=== PATIENT | female | born 2000 ===

== ENCOUNTER → 2023-12-22 | Outpatient (CLI) | payer OTHER ==
[2023-12-22 17:06] LABS: Source, Urine Clean Catch
[2023-12-22 19:32] LABS: Appearance, Urine Hazy (Clear); Bilirubin, Urine Neg (Neg); Blood, Urine 2+ (Neg); Color, Urine Yellow (P-Yellow); Glucose Qualitative, Urine Neg (Neg); Ketones, Urine Neg (Neg); Leukocyte Esterase, Urine 1+ (Neg); Nitrite, Urine Neg (Neg); Protein, Urine Neg (Neg); Urobilinogen, Urine NORM (Normal)
[2023-12-22 19:50] LABS: U Amphetamine Screen Not Detected; U Barbituate Screen Not Detected; U Benzodiazapine Screen Not Detected; U Buprenorphine Screen Not Detected; U Cannabinoids Screen Not Detected; U Cocaine Screen Not Detected; U Methadone Screen Not Detected; U Methamphetamine Screen Not Detected; U Opiates Screen Not Detected; U Oxycodone Screen Not Detected; U Phencyclidine Screen Not Detected
[2023-12-22 19:59] LABS: Amorphous Light (0-Heavy); Calcium Oxalate Crystals Few /hpf; Mucus Light (0-Heavy); Red Blood Cells, Urine 0-2 /hpf (0-2); Squamous Epithelial Cells Rare /hpf (Few)
[2023-12-22 20:00] LABS: Bacteria Mod /hpf
== END ==
LOC: LAB 17:00 → LAB SHORT 17:00
PROVIDERS: Advanced Practice Midwife
DX: Z34.01 Encounter for supervision of normal first pregnancy, first trimester (principal)
CPT/HCPCS: 81001; 87086

== ENCOUNTER → 2024-01-05 | Outpatient (CLI) | payer OTHER ==
[2024-01-08 19:43] LABS: C. TRACHOMATIS BY TMA,THINPREP Negative (Negative); N. GONORRHOEAE BY TMA,THINPREP Negative (Negative); SPECIMEN SOURCE Not Provided
== END | disposition home or self-care (01) ==
LOC: LAB SHORT 16:35 → LAB 16:35
PROVIDERS: Obstetrics & Gynecology
DX: Z01.419 Encounter for gynecological examination (general) (routine) without abnormal findings (principal); Z11.3 Encounter for screening for infections with a predominantly sexual mode of transmission
CPT/HCPCS: 87491; 87591; G0123

== ENCOUNTER → 2024-05-20 | Outpatient (CLI) | payer OTHER | LOC: LAB SHORT 16:28 → LAB 16:28 | DX: O09.893 Supervision of other high risk pregnancies, third trimester (principal) | CPT/HCPCS: 87081; 87150 ==

== ENCOUNTER 2024-06-04 21:40 | Inpatient (IN) | payer OTHER ==
[~2024-06-04] VITALS: Ht 149.9 cm; Wt 61.8 kg
[2024-06-04 21:51] VITALS: BP 128/77
[2024-06-04] MEDS ORDERED: FentaNYL Citrate 50 MCG/ML 2 ML Injection IV PRN (22:20)
[2024-06-04] MEDS ORDERED: ePHEDrine Sulfate 50 MG/ML 1ML Injection XX PRN (22:20)
[2024-06-04] MEDS ORDERED: Methylergonovine Maleate 0.2MG / ML 1ML Amp IM PRN (22:20)
[2024-06-04] MEDS ORDERED: Lactated Ringer's 1,000 ML IV PRN (22:20)
[2024-06-04] MEDS ORDERED: Oxytocin 10 Unit / ML Vial IM PRN (22:20)
[2024-06-04] MEDS ORDERED: Acetaminophen 500 MG Tab PO PRN (22:20)
[2024-06-04] MEDS ORDERED: OXYTOCIN/RINGER'S LACTATE 500 ML IV PRN (22:20)
[2024-06-04] MEDS ORDERED: Ondansetron HCl 2 MG / ML 2ML Vial IV PRN (22:20)
[2024-06-04] MEDS ORDERED: Misoprostol 200 MCG Tab PR PRN (22:20)
[2024-06-04] MEDS ORDERED: FentaNYL 2mcg/ml-Bup 0.1% Epd 250 ML EPI PRN (22:20)
[2024-06-04] MEDS ORDERED: Misoprostol 200 MCG Tab BC PRN (22:20)
[2024-06-04] MEDS ORDERED: Lactated Ringer's 1,000 ML IV SCH ×2 (22:20)
[2024-06-04] MEDS ORDERED: Carboprost Tromethamine 250 MCG/ML 1ML Amp IM PRN (22:20)
[2024-06-04] MEDS ORDERED: Calcium Carbonate 500 MG Tab Chew PO PRN (22:25)
[2024-06-04] MEDS ORDERED: Tranexamic Acid 100 ML IV SCH (22:35)
[2024-06-04] MEDS ORDERED: PRENATAL TABLE1 EAC2 PO (22:37)
[2024-06-04 22:40] VITALS: BP 111/63
[2024-06-05] VITALS (13 sets, daily range): BP systolic 101–141; BP diastolic 53–81
[2024-06-05 00:26] LABS: BASOPHILS ABSOLUTE AUTO 0.03 K/mm3 (0.00-0.23); BASOPHILS PERCENT AUTO 0 % (0-2); EOSINOPHILS ABSOLUTE AUTO 0.03 K/mm3 (0.00-0.68); EOSINOPHILS PERCENT AUTO 0 % (0-6); Hematocrit 34.8 % (33.0-51.0); Hemoglobin 11.5 g/dL (11.5-16.0); IMMATURE GRAN ABSOLUTE AUTO 0.24 K/mm3 (0.00-0.10); IMMATURE GRAN PERCENT AUTO 2 % (0-1); LYMPHOCYTES ABSOLUTE AUTO 1.79 K/mm3 (0.84-5.20); LYMPHOCYTES PERCENT AUTO 14 % (21-46); MONOCYTES ABSOLUTE AUTO 1.23 K/mm3 (0.16-1.47); MONOCYTES PERCENT AUTO 10 % (4-13); Mean Corpuscular HGB 27.4 pg (26.0-34.0); Mean Corpuscular Volume 83 fL (80-100); NEUTROPHILS ABSOLUTE AUTO 9.35 K/mm3 (1.96-9.15); NEUTROPHILS PERCENT AUTO 74 % (41-73); Platelet Count 190 K/mm3 (150-400); RDW Coefficient Variation 13.5 % (11.7-14.2); RDW Standard Deviation 40.7 fL (35.1-46.3); Red Blood Cell Count 4.19 M/mm3 (3.80-5.20); White Blood Cell Count 12.67 K/mm3 (4.00-11.30)
[2024-06-05] MEDS ORDERED: Oxytocin 10 Unit / ML Vial IM ONE (04:45)
[2024-06-05] MEDS ORDERED: Lanolin Cream TOP PRN (04:45)
[2024-06-05] MEDS ORDERED: Misoprostol 200 MCG Tab PR PRN (04:45)
[2024-06-05] MEDS ORDERED: Benzocaine Topical Anesthetic Spray 60GM TOP PRN (04:45)
[2024-06-05] MEDS ORDERED: Witch Hazel/Glycerin PADS TOP PRN (04:50)
[2024-06-05] MEDS ORDERED: Carboprost Tromethamine 250 MCG/ML 1ML Amp IM PRN (04:50)
[2024-06-05] MEDS ORDERED: FLU VACC TS2024-25(6MOS UP)/PF 45 MCG/0.5 ML SYRINGE IM SCH (04:50)
[2024-06-05] MEDS ORDERED: Methylergonovine Maleate 0.2MG / ML 1ML Amp IM PRN (04:50)
[2024-06-05] MEDS ORDERED: Ibuprofen 400 MG Tab PO PRN (04:50)
[2024-06-05] MEDS ORDERED: Polyethylene Glycol 3350 17 gm PO PRN (04:50)
[2024-06-05] MEDS ORDERED: Ketorolac Tromethamine 30mg Vial IV PRN (04:50)
[2024-06-05] MEDS ORDERED: Misoprostol 100 MCG Tab PO PRN (04:55)
[2024-06-05] MEDS ORDERED: Prenatal Vit/FE Fumarate/FA 1 Tab PO SCH (09:00)
[2024-06-06 01:15] VITALS: BP 121/67
[2024-06-06 04:45] VITALS: BP 112/58
[2024-06-06 05:49] LABS: Hematocrit 30.1 % (33.0-51.0); Mean Corpuscular HGB 27.2 pg (26.0-34.0); Mean Corpuscular HGB Conc 33.2 g/dL (31.5-36.5); Mean Corpuscular Volume 82 fL (80-100); Mean Platelet Volume 11.7 fL (9.1-12.4); Platelet Count 168 K/mm3 (150-400); RDW Coefficient Variation 13.7 % (11.7-14.2); RDW Standard Deviation 40.9 fL (35.1-46.3); Red Blood Cell Count 3.67 M/mm3 (3.80-5.20); White Blood Cell Count 17.14 K/mm3 (4.00-11.30)
[2024-06-06 07:57] VITALS: BP 108/72
[2024-06-06 12:11] VITALS: BP 116/53
== END 2024-06-06 12:41 | disposition home or self-care (01) | DRG 807 ==
LOC: OBS 21:40 → BC 21:45 → OBS 22:13 → BC 22:19
PROVIDERS: Family Medicine; ADMIT Obstetrics & Gynecology
PROC: 10E0XZZ Delivery of Products of Conception, External Approach (ICD-10-PCS; principal; 2024-06-05)
DX: O99.02 Anemia complicating childbirth (principal); Z37.0 Single live birth; O70.0 First degree perineal laceration during delivery; Z3A.39 39 weeks gestation of pregnancy; Z79.899 Other long term (current) drug therapy; Z67.10 Type A blood, Rh positive
CPT/HCPCS: 36415; 59025; 85025; 85027; 86850; 86900; 86901; 99214; A9270; J2590

== ENCOUNTER → 2024-09-30 | Outpatient (CLI) | payer OTHER ==
[~2024-09-30] MED LIST: PRENATAL TABLE1 EAC2 PO
== END ==
LOC: LAB SHORT 18:11 → LAB 18:11
DX: N75.0 Cyst of Bartholin's gland (principal)
CPT/HCPCS: 87070; 87075; 87205

== ENCOUNTER 2025-06-30 11:00 | Day surgery (SDC) | payer OTHER ==
[~2025-06-30] VITALS: Ht 152.4 cm; Wt 47.8 kg
[2025-06-30] MEDS ORDERED: Acetaminophen650 M1 PO ×2 (11:30)
--- NOTE | 2025-06-30 11:58 | NUR ---
06/30/25 1158 SARA ALVAREZ ANESTHESIA AT BEDSIDE, PT OKAY TO BREASTFEED, PER
[2025-06-30] MEDS ORDERED: Midazolam HCl 1MG / ML 2ML Vial ONE (12:00)
[2025-06-30] MEDS ORDERED: FentaNYL Citrate 50 MCG/ML 2 ML Injection ONE ×2 (12:00→12:38)
[2025-06-30] MEDS ORDERED: Ondansetron HCl 2 MG / ML 2ML Vial ONE (12:02)
[2025-06-30] MEDS ORDERED: Dexamethasone Sod Phos 10 MG/ML 1ML VIAL ONE (12:02)
[2025-06-30] MEDS ORDERED: Ketorolac Tromethamine 30mg Vial ONE (12:03)
[2025-06-30] MEDS ORDERED: Bupivacaine 0.5% W/EPI 1:200000 SDV 30 ML Vial ONE (12:09)
[2025-06-30] MEDS ORDERED: Naloxone HCl 0.4MG / ML 1ML Vial ONE (13:00)
--- NOTE | 2025-06-30 13:25 | NUR ---
06/30/[address] AT BEDSIDE
--- NOTE | 2025-06-30 13:27 | NUR ---
06/30/25 1327 Sabi Chester REPORT FROM RN AND DAVEY. PT RESTLESS UPON ARRIVAL, WARM BLANKETS APPLIED, PT REASSURED. PT RESTING ON RIGHT SIDE. MONITORS APPLIED. PT AAOX3 PRIOR TO DISCHARGE FROM PACU. PT FOLLOWS COMMANDS AND ANSWERS QUESTIONS. IV PATENT. NO BLEEDING NOTED. PT DENIES PAIN OR NAUSEA
== END 2025-06-30 14:25 | disposition home or self-care (01) ==
LOC: ORSCSDS 11:00 → ORD 07-18 15:00
PROVIDERS: Obstetrics & Gynecology
PROC: 0UBLXZZ Excision of Vestibular Gland, External Approach (ICD-10-PCS; principal; 2025-06-30 12:15)
DX: N75.0 Cyst of Bartholin's gland (principal)
CPT/HCPCS: A9270; J1100; J1885; J2250; J2312; J2405; J2704; J3010